=== PATIENT | male | born 1995 | race Caucasian/White ===

== ENCOUNTER 2017-12-27 14:39 | Emergency (ER) | payer OTHER ==
[2017-12-27 14:49] VITALS: BP 129/77; PULSE 57; RESP 18; TEMP 97.5; O2SAT 97
--- NOTE | 2017-12-27 15:08 | C.PDOC ---
History Of Present Illness 22 year old male is presents to the ED for evaluation of new onset right ear buzzing which began around 1230 today. Patient states he was asymptomatic upon waking up this morning. Patient went back to bed and his symptoms began shortly after he woke up again. Patient denies fever, chills, discharge/bleeding, trauma /injury to the ear. Time Seen by Provider: 12/27/17 15:05 Chief Complaint (Nursing): ENT Problem History Per: Patient History/Exam Limitations: None Onset/Duration Of Symptoms: Hrs, Sudden Onset Current Symptoms Are (Timing): Still Present Past Medical History Reviewed: Historical Data, Nursing Documentation, Vital Signs Vital Signs: Last Vital Signs Temp 97.5 F L 12/27/17 14:49 Pulse 57 L 12/27/17 14:49 Resp 18 12/27/17 14:49 BP 129/77 12/27/17 14:49 Pulse Ox 97 12/27/17 15:10 - Medical History PMH: No Chronic Diseases Surgical History: No Surg Hx Family History: States: Unknown Family Hx - Social History Hx Alcohol Use: No Hx Substance Use: No - Immunization History Hx Tetanus Toxoid Vaccination: No Hx Influenza Vaccination: No Hx Pneumococcal Vaccination: No Review Of Systems Constitutional: Negative for: Fever, Chills ENT: Positive for: Other (buzzing in right ear ). Negative for: Ear Discharge Physical Exam - Physical Exam Appears: Non-toxic, No Acute Distress Skin: Normal Color, Warm, Dry Head: Atraumatic, Normacephalic Eye(s): bilateral: Normal Inspection Ear(s): Bilateral: Normal Nose: Normal, No Discharge Oral Mucosa: Moist Throat: Normal, No Erythema, No Exudate Neck: Supple Chest: Symmetrical, No Deformity, No Tenderness Cardiovascular: Rhythm Regular Respiratory: Normal Breath Sounds Neurological/Psych: Oriented x3, Normal Speech, Normal Cognition Gait: Steady ED Course And Treatment O2 Sat by Pulse Oximetry: 97 Medical Decision Making Medical Decision Making: Patient is requesting audio testing. Patient is advised that he must follow up with a specialist in order to undergo auditory testing. Disposition Counseled Patient/Family Regarding: Diagnosis, Need For Followup, Rx Given - Disposition Referrals: Jim Rendon MD [Staff Provider] - [facility] [Outside] [facility] [Outside] Disposition: HOME/ ROUTINE Disposition Time: 15:09 Condition: GOOD Additional Instructions: FOLLOW UP ENT FOR FURTHER EVALUATION, POSSIBLE AUDIOLOGY EVALUATION Instructions: Tinnitus (Ringing in the Ears) Forms: [facility] [facility] ([place]) - Clinical Impression Clinical Impression: Tinnitus - Scribe Statement The provider has reviewed the documentation as recorded by the Scribe (Perla Torre) Provider Attestation: All medical record entries made by the Scribe were at my direction and personally dictated by me. I have reviewed the chart and agree that the record accurately reflects my personal performance of the history, physical exam, medical decision making, and the department course for this patient. I have also personally directed, reviewed, and agree with the discharge instructions and disposition.
== END 2017-12-27 15:51 | disposition home or self-care (01) ==
LOC: C.ER 14:39
DX: H93.11 Tinnitus, right ear (principal)